=== PATIENT | female | born 1990 | race Caucasian/White ===

== ENCOUNTER 2021-03-08 15:43 | Inpatient (IN) ==
[2021-03-08 16:45] LABS: Bacteria,Urine Few per hpf (None-Few); Bilirubin,Urine Moderate (Negative); Blood,Urine Negative (Negative); Clarity,Urine Turbid (Clear); Color,Urine Dark-Yellow (Yellow); Glucose,Urine (UA) Normal (Normal); Ketones,Urine 80 mg/dL (Negative); Leukocyte Esterase,Urine Trace (Negative); Mucus,Urine Few per lpf (None-Few); Nitrite,Urine Negative (Negative); Protein,Urine 50 mg/dL (Neg-Trace); RBC,Urine 0-3 per hpf (0-3); Specific Gravity,Urine > 1.030 (1.010-1.025); Squamous Epithelial Cell,Urine Few per hpf (None-Few); Urobilinogen,Urine >=8.0 mg/dL (Normal); WBC,Urine 0-3 per hpf (0-3)
[2021-03-08] MEDS ORDERED: 0.9 % Sodium Chloride 1,000 ML IVC ONE (16:58)
[2021-03-08] MEDS ORDERED: Ondansetron 4 MG/2 ML VIAL IVP ONE (16:58)
[2021-03-08] MEDS ORDERED: Isovue-370 500 ML BOTTLE IVP ONE (16:59)
[2021-03-08 17:10] LABS: Basophils % 0.1 %; Eosinophils % 0.1 %; Hematocrit 42.5 % (35.3-44.9); Hemoglobin 14.2 g/dL (11.5-15.4); Immature Granulocytes % 0.3 % (0-4); Lymphocytes % 12.3 %; Mean Corpuscular HGB Conc 33.4 g/dL (31.6-35.5); Mean Platelet Volume 9.4 fL (9.4-12.4); Monocytes # 0.4 K/mcL (0.0-1.3); Monocytes % 5.4 %; Neutrophils # 6.3 K/mcL (1.6-8.9); Platelet Count 271 K/mcL (140-400); Red Blood Count 5.25 M/mcL (3.82-4.97); Red Cell Distribution Width 13.3 % (11.5-14.5); Segmented Neutrophils % 81.8 %; White Blood Count 7.7 K/mcL (4.3-11.1)
[2021-03-08 17:47] LABS: Alanine Aminotransferase 461 Units/L (7-52); Albumin 4.5 g/dL (3.5-5.7); Albumin/Globulin Ratio 1.2 (1.1-2.2); Alkaline Phosphatase 333 Units/L (34-104); Aspartate Amino Transferase 300 Units/L (13-39); BUN/Creatinine Ratio 12 (6-26); Bilirubin,Direct 3.7 mg/dL (0.0-0.2); Bilirubin,Indirect 1.9 mg/dL (0.0-1.0); Bilirubin,Total 5.6 mg/dL (0.3-1.0); Blood Urea Nitrogen 9 mg/dL (6-20); Carbon Dioxide 24 mEq/L (23-29); Chloride 99 mEq/L (98-107); Globulin 3.7 g/dL (2.4-3.5); Glucose 126 mg/dL (70-105); Lipase 1713 Units/L (11-82); Osmolality,Calculated 282 (280-300); Potassium 3.4 mEq/L (3.5-5.1); Sodium 136 mEq/L (136-145); Total Protein 8.2 g/dL (6.4-8.9); eGFR For African Americans > 60 (> 60); eGFR For Non-African Americans > 60 (> 60)
[2021-03-08 18:54] LABS: INR 1.2; Prothrombin Time 14.3 Seconds (9.4-12.1)
[2021-03-08 18:57] LABS: Activated Partial Thrombo Time 31.2 Seconds (26.0-36.0)
[2021-03-08] MEDS ORDERED: Piperacillin/Tazobactam 3.375 GM in 0.9 % Sodium Chloride Mini Bag 100 ML IVPB ONE (18:57)
[2021-03-08] MEDS ORDERED: Naloxone 0.4 MG/ML INJ IVP PRN (19:31)
[2021-03-08] MEDS ORDERED: Ondansetron 4 MG/2 ML VIAL IVP PRN (19:31)
[2021-03-08] MEDS ORDERED: Ringers Solution, Lactated 1,000 ML IVC SCH (20:30)
[2021-03-08] MEDS: Pantoprazole 40 MG VIAL IVP SCH (23:55)
[2021-03-08] MEDS: Ringers Solution, Lactated 1,000 ML IVC SCH (23:55)
[2021-03-09 03:26] LABS: Albumin 3.7 g/dL (3.5-5.7); Albumin/Globulin Ratio 1.5 (1.1-2.2); Bilirubin,Indirect 1.2 mg/dL (0.0-1.0); Bilirubin,Total 3.2 mg/dL (0.3-1.0); Chol/HDL Ratio 3.5 (0-4.9); Globulin 2.5 g/dL (2.4-3.5); Total Protein 6.2 g/dL (6.4-8.9)
[2021-03-09 03:27] LABS: BUN/Creatinine Ratio 11 (6-26); Blood Urea Nitrogen 7 mg/dL (6-20); Calcium 8.9 mg/dL (8.6-10.3); Carbon Dioxide 23 mEq/L (23-29); Chloride 105 mEq/L (98-107); Glucose 85 mg/dL (70-105); Osmolality,Calculated 281 (280-300); Phosphorous 2.9 mg/dL (2.7-4.5); Potassium 3.6 mEq/L (3.5-5.1); Sodium 137 mEq/L (136-145); eGFR For African Americans > 60 (> 60); eGFR For Non-African Americans > 60 (> 60)
[2021-03-09 04:35] LABS: Basophils % 0.2 %; Eosinophils # 0.1 K/mcL (0.0-0.6); Eosinophils % 1.2 %; Hematocrit 34.8 % (35.3-44.9); Hemoglobin 11.5 g/dL (11.5-15.4); Immature Granulocytes % 0.2 % (0-4); Lymphocytes # 1.6 K/mcL (0.6-4.6); Lymphocytes % 33.5 %; Mean Corpuscular Volume 81.7 fL (83.0-100.0); Mean Platelet Volume 9.6 fL (9.4-12.4); Monocytes # 0.4 K/mcL (0.0-1.3); Monocytes % 8.7 %; Neutrophils # 2.7 K/mcL (1.6-8.9); Platelet Count 193 K/mcL (140-400); Red Blood Count 4.26 M/mcL (3.82-4.97); Red Cell Distribution Width 13.5 % (11.5-14.5); Segmented Neutrophils % 56.2 %; White Blood Count 4.8 K/mcL (4.3-11.1)
[2021-03-09] MEDS: Nicotine 7 MG PATCH.TD24 TD SCH ×2 (07:24→09:12)
[2021-03-09 07:48] LABS: Estimated Average Glucose 114 mg/dl; Hemoglobin A1C 5.6 %
[2021-03-09] MEDS: Pantoprazole 40 MG VIAL IVP SCH (09:11)
[2021-03-09] MEDS: Ringers Solution, Lactated 1,000 ML IVC SCH ×2 (09:12→16:55)
[2021-03-09] MEDS: Ketorolac 15 MG/ML VIAL IVP PRN ×3 (09:19→21:28)
[2021-03-09] MEDS: Methadone Oral Concentrate 50 MG/5 ML UDC PO SCH (13:21)
[2021-03-09] MEDS: Piperacillin/Tazobactam 3.375 GM in 0.9 % Sodium Chloride Mini Bag 100 ML IVPB SCH ×2 (15:29→23:20)
[2021-03-09] MEDS: *HR* Heparin 5,000 UNIT/ML VIAL SQ SCH (16:56)
[2021-03-09] MEDS ORDERED: D5% in Water 1,000 ML IVC PRN (17:46)
[2021-03-09] MEDS ORDERED: Dextrose Gel 15 GM/37.5 ML TUBE PO PRN ×2 (17:46)
[2021-03-09] MEDS ORDERED: *HR* Dextrose 50 % in Water (Vial) 50 ML VIAL IVP PRN (17:46)
[2021-03-10] MEDS: Ringers Solution, Lactated 1,000 ML IVC SCH ×4 (01:01→20:21)
[2021-03-10] MEDS: *HR* Heparin 5,000 UNIT/ML VIAL SQ SCH ×2 (05:47→17:59)
[2021-03-10 06:24] LABS: Alanine Aminotransferase 233 Units/L (7-52); Albumin 3.8 g/dL (3.5-5.7); Albumin/Globulin Ratio 1.4 (1.1-2.2); Alkaline Phosphatase 255 Units/L (34-104); Aspartate Amino Transferase 83 Units/L (13-39); BUN/Creatinine Ratio 9 (6-26); Blood Urea Nitrogen 6 mg/dL (6-20); Calcium 8.9 mg/dL (8.6-10.3); Carbon Dioxide 24 mEq/L (23-29); Chloride 104 mEq/L (98-107); Chol/HDL Ratio 5.6 (0-4.9); Cholesterol 161 mg/dL (< 200); Globulin 2.7 g/dL (2.4-3.5); Glucose 82 mg/dL (70-105); HDL Cholesterol 29 mg/dL (40-59); LDL Cholesterol,Calculated 97 mg/dL (< 100); Magnesium 1.9 mg/dL (1.6-2.6); Osmolality,Calculated 283 (280-300); Phosphorous 3.7 mg/dL (2.7-4.5); Potassium 3.6 mEq/L (3.5-5.1); Sodium 138 mEq/L (136-145); Total Protein 6.5 g/dL (6.4-8.9); Triglycerides 177 mg/dL (< 150); eGFR For African Americans > 60 (> 60); eGFR For Non-African Americans > 60 (> 60)
[2021-03-10 06:44] LABS: Hepatitis B Surface Antigen Nonreactive (Nonreactive)
[2021-03-10] MEDS ORDERED: *HR* FentaNYL (PF) 100 MCG/2 ML VIAL ONE ×3 (07:09→09:06)
[2021-03-10] MEDS ORDERED: *HR* Midazolam HCl 2 MG/2 ML VIAL ONE (07:09)
[2021-03-10] MEDS ORDERED: *HR* Propofol 200 MG/20 ML VIAL IVP ONE ×2 (07:09→09:52)
[2021-03-10] MEDS ORDERED: CefOXitin 1,000 MG VIAL ONE (07:11)
[2021-03-10] MEDS ORDERED: Isovue-300 50ML VIAL ONE (07:11)
[2021-03-10 07:12] LABS: Hepatitis B Core IgM Nonreactive (Nonreactive)
[2021-03-10 07:13] LABS: Hepatitis A Antibody IgM Nonreactive (Nonreactive)
[2021-03-10] MEDS ORDERED: Ondansetron 4 MG/2 ML VIAL ONE (07:23)
[2021-03-10] MEDS ORDERED: Lidocaine HCL 4 ML Topical Solution (Laryng-O-Jet Kit Sterile Pak) TP ONE (07:23)
[2021-03-10] MEDS ORDERED: Lidocaine -MPF 2% 2 ML VIAL ONE (07:23)
[2021-03-10] MEDS ORDERED: *HR* Rocuronium Bromide 50 MG/5 ML VIAL ONE (07:23)
[2021-03-10] MEDS: Pantoprazole 40 MG VIAL IVP SCH (07:54)
[2021-03-10] MEDS ORDERED: Famotidine 20 MG/2 ML VIAL IVP ONE ×2 (08:40→11:42)
[2021-03-10] MEDS ORDERED: *HR* OxyCODONE Immed Rel 5 MG TABLET PO PRN ×2 (08:40→11:42)
[2021-03-10] MEDS ORDERED: Scopolamine Patch 1.5 MG PATCH.TD72 TD ONE ×2 (08:40→11:42)
[2021-03-10] MEDS ORDERED: *HR* HYDROmorphone 2 MG TABLET PO PRN ×2 (08:40→11:42)
[2021-03-10] MEDS ORDERED: Acetaminophen IV 1,000 MG/100 ML BAG IVPB ONE ×3 (08:40→11:42)
[2021-03-10] MEDS ORDERED: *HR* Labetalol 20 MG/4 ML SYRINGE IVP PRN ×2 (08:40→11:42)
[2021-03-10] MEDS ORDERED: *HR* HYDROmorphone (PF) 1 MG/ML SYRINGE IVP PRN ×2 (08:40→11:42)
[2021-03-10] MEDS ORDERED: Famotidine 20 MG/2 ML VIAL ONE (08:59)
[2021-03-10] MEDS ORDERED: lisinopriL 5 MG TABLET PO SCH (09:00)
[2021-03-10] MEDS: Piperacillin/Tazobactam 3.375 GM in 0.9 % Sodium Chloride Mini Bag 100 ML IVPB SCH ×3 (09:00→23:38)
[2021-03-10] MEDS ORDERED: Spironolactone 25 MG TABLET PO SCH (09:00)
[2021-03-10] MEDS ORDERED: Ketorolac 30 MG/ML VIAL ONE (09:40)
[2021-03-10] MEDS ORDERED: Sugammadex Sodium 200 MG/2 ML VIAL IV ONE (09:50)
[2021-03-10 09:51] LABS: Hepatitis C Virus Antibody Reactive (Nonreactive)
[2021-03-10] MEDS ORDERED: *HR* HYDROMORPHONE 2 MG/ML VIAL ONE ×3 (09:52→09:59)
[2021-03-10] MEDS ORDERED: *HR* Promethazine 25 MG/ML VIAL IM STA (10:38)
[2021-03-10] MEDS ORDERED: Ketorolac 15 MG/ML VIAL IVP PRN (11:42)
[2021-03-10] MEDS ORDERED: Dextrose Gel 15 GM/37.5 ML TUBE PO PRN ×2 (11:42)
[2021-03-10] MEDS ORDERED: D5% in Water 1,000 ML IVC PRN (11:42)
[2021-03-10] MEDS ORDERED: *HR* Dextrose 50 % in Water (Vial) 50 ML VIAL IVP PRN (11:42)
[2021-03-10] MEDS ORDERED: Naloxone 0.4 MG/ML INJ IVP PRN (11:42)
[2021-03-10] MEDS: Methadone Oral Concentrate 50 MG/5 ML UDC PO SCH (11:44)
[2021-03-10] MEDS: Nicotine 7 MG PATCH.TD24 TD SCH (11:44)
[2021-03-10] MEDS: Ondansetron 4 MG/2 ML VIAL IVP PRN (18:00)
[2021-03-11 01:41] LABS: Basophils % 0.2 %; Hematocrit 33.3 % (35.3-44.9); Hemoglobin 11.4 g/dL (11.5-15.4); Immature Granulocytes % 0.2 % (0-4); Lymphocytes # 1.5 K/mcL (0.6-4.6); Mean Corpuscular HGB Conc 34.2 g/dL (31.6-35.5); Mean Corpuscular Hemoglobin 27.6 pg (28.0-33.3); Mean Corpuscular Volume 80.6 fL (83.0-100.0); Mean Platelet Volume 9.6 fL (9.4-12.4); Monocytes # 0.4 K/mcL (0.0-1.3); Monocytes % 6.5 %; Neutrophils # 4.2 K/mcL (1.6-8.9); Platelet Count 206 K/mcL (140-400); Red Blood Count 4.13 M/mcL (3.82-4.97); Red Cell Distribution Width 12.8 % (11.5-14.5); Segmented Neutrophils % 68.1 %; White Blood Count 6.2 K/mcL (4.3-11.1)
[2021-03-11 02:01] LABS: Alanine Aminotransferase 173 Units/L (7-52); Albumin 3.5 g/dL (3.5-5.7); Albumin/Globulin Ratio 1.3 (1.1-2.2); Alkaline Phosphatase 205 Units/L (34-104); Aspartate Amino Transferase 59 Units/L (13-39); BUN/Creatinine Ratio 11 (6-26); Bilirubin,Total 0.9 mg/dL (0.3-1.0); Blood Urea Nitrogen 7 mg/dL (6-20); Calcium 8.9 mg/dL (8.6-10.3); Carbon Dioxide 22 mEq/L (23-29); Chloride 103 mEq/L (98-107); Globulin 2.8 g/dL (2.4-3.5); Glucose 71 mg/dL (70-105); Magnesium 1.7 mg/dL (1.6-2.6); Osmolality,Calculated 278 (280-300); Phosphorous 3.7 mg/dL (2.7-4.5); Potassium 3.7 mEq/L (3.5-5.1); Sodium 136 mEq/L (136-145); Total Protein 6.3 g/dL (6.4-8.9); eGFR For African Americans > 60 (> 60); eGFR For Non-African Americans > 60 (> 60)
[2021-03-11] MEDS: Ringers Solution, Lactated 1,000 ML IVC SCH (05:02)
[2021-03-11] MEDS: *HR* Heparin 5,000 UNIT/ML VIAL SQ SCH (05:08)
[2021-03-11 07:22] VITALS: BP 125/76; TEMP 98.5; O2SAT 99
[2021-03-11] MEDS ORDERED: Pantoprazole 40 MG VIAL IVP SCH (09:00)
[2021-03-11] MEDS ORDERED: Methadone Oral Concentrate 50 MG/5 ML UDC PO SCH (09:00)
[2021-03-11] MEDS ORDERED: Nicotine 7 MG PATCH.TD24 TD SCH (09:00)
[2021-03-11] MEDS: Piperacillin/Tazobactam 3.375 GM in 0.9 % Sodium Chloride Mini Bag 100 ML IVPB SCH (09:28)
[2021-03-11] MEDS: Ondansetron 4 MG/2 ML VIAL IVP PRN (09:44)
[2021-03-11 09:45] VITALS: PULSE 73
== END 2021-03-11 10:59 | disposition home or self-care (01) | DRG 263 ==
LOC: EMEROOARM 15:43 → 3BNU 15:43 → SUATTDRO 19:37 → 3BNU 20:32
PROVIDERS: ADMIT Family Medicine; ATTEND Internal Medicine